=== PATIENT | female | born 2000 | race Caucasian/White ===

== ENCOUNTER → 2023-09-11 | Outpatient (CLI) | payer OTHER, SELFPAY ==
[2023-09-11 12:48] LABS: hCG Titer Quant., Serum > 200000 mIU/mL (1-3)
== END | disposition home or self-care (01) ==
LOC: PAVLAB 09:50
PROVIDERS: PCP Family Medicine; Referring Provider Obstetrics & Gynecology; Visit Provider Obstetrics & Gynecology
DX: O02.1 Missed abortion (principal)
CPT/HCPCS: 36415; 84702; 86850; 86900; 86901

== ENCOUNTER → 2023-09-12 | Outpatient (CLI) | payer OTHER, SELFPAY ==
--- NOTE | 2023-09-12 07:04 | US_ITS ---
INDICATION: well being EXAMINATION: Ultrasound US OB Transvaginal TECHNIQUE: Transabdominal and transvaginal (for optimal evaluation of the adnexa) pelvic ultrasound was performed. Grayscale, spectral waveform, and color flow Doppler evaluation of the adnexa. COMPARISON: No relevant prior comparison study available LMP: [07/06/2023 Beta-hCG: Unknown FINDINGS: UTERUS: The uterus measures 11 x 10 x 7.2 cm. RIGHT OVARY: The right ovary measures 3.8 x 2.6 x 2.7 cm. Normal. LEFT OVARY: The left ovary measures 3.6 x 1.9 x 2.5 cm. Normal. FREE FLUID: None. INTRAUTERINE GESTATIONAL SAC(s) (size/shape): Single. Small fluid collection/cyst measuring about 5 mm seen anterior to the gestational sac. YOLK SAC: Identified measuring 4 mm. POLE: Identified CRL 2.1 cm. ESTIMATED GESTATION AGE: 8 weeks and 4 days. HEART MOTION: 164 bpm. PLACENTA: Not visualized due to age. SUBCHORIONIC HEMORRHAGE: None. AMNIOTIC FLUID: Qualitatively normal. US/Transvaginal w/Preg US IMPRESSION: Single live intrauterine . Estimated gestational age is 8 weeks and 4 days. The EKATERINA is 04/19/2024. Electronically Signed: Benitez Cano MD at 8:39 EST ,
--- OUTSIDE RECORDS SUMMARY | 2023-09-12 07:06 | XMS RPT_ITS | CCD ---
Author Name Unknown Address [facility] [place] [address] Organization [facility] Care Team Providers Care Glass Scullion Name Role Phone Mikaela Rick Unavailable Unavailable CHANTALE TORRES Attending Unavailable MIKAELA RICK Primary Care Unavailable Mikaela Rick MD Primary Care Provider [phone] SIMRAN GARCIA Attending Unavailable MIKAELA RICK Primary Care Unavailable SIMRAN GARCIA Referring Unavailable MIKAELA RICK Primary Care Unavailable Medications Current Medications Medication Drug Class(es) Dates Sig (Normalized) Sig (Original) sulfamethoxazole 800 mg / trimethoprim 160 mg oral tablet (1 source) Dihydrofolate Reductase Inhibitor Antibacterial, Sulfonamide Antimicrobial Start: 11-24-2022 End: 07-14-2023 sulfamethoxazole- trimethoprim (Bactrim DS) 800-160 mg tablet Indications: Acute cystitis without hematuria Take 1 tablet twice daily until gone 10 tablet 0 11/24/2022 07/14/2023 Discontinued (Med List Cleanup) Completed/Discontinued Medications Medication Drug Class(es) Dates Sig (Normalized) Sig (Original) No Reported Medications (1 source) No Reported Medi cations Refills: 0 Active Problems Active Problems Problem Classification Problem Date Documented Da te Episodic/Chronic Cardiac dysrhythmias (5 sources) Tachycardia; Translations: [Tachycardia, unspecified] Onset: 07-14-2023 07-14-2023 Episodic Unclassified (2 sources) New Patient; Translations: [New Patient] Onset: 10-27-2022 Unclassified (2 sources) Annual Exam; Translations: [Annual Exam] Onset: 10-27-2022 Past or Other Problems Problem Classification Problem Date Documented Da te Episodic/Chronic NEGATED: Highlighted row has been ruled out!Residual codes; unclassified (2 sources) Disease Episodic Results Test Name Value Interpretation Reference Range Facil ity Vital Signs Date Time Vital Sign Value Performing Clinician Facility 07-14-2023 07:51-0500 Body temperature 97.9 [degF] Simran Garcia DO Work Phone: [facility] 07-14-2023 07:51-0500 Body weight 51.03 kg Simran Zarcoko DO Work Phone: [facility] 07-14-2023 07:51-0500 Diastolic blood pressure 62 mm[Hg] Simran Zarcoko DO Work Phone: [facility] 07-14-2023 07:51-0500 Heart rate 88 /min Simran Garcia DO Work Phone: [facility] 07-14-2023 07:51-0500 Respiratory rate 16 /min Simran Zarcoko DO Work Phone: [facility] 07-14-2023 07:51-0500 SaO2% (BldA) [Mass fraction] 98 % Simran Garcia DO Work Phone: [facility] 07-14-2023 07:51-0500 Systolic blood pressure 98 mm[Hg] Simran Garcia DO Work Phone: [facility] Encounters Encounter Date Encounter Type Care Provider Facility Start: 07-14-2023 End: 07-15-2023 ambulatory [facility] Start: 07-14-2023 End: 07-15-2023 Encounter for general adult medical examination without abnormal findings [facility] Start: 07-14-2023 End: 07-14-2023 Office outpatient visit 15 minutes Simranlibia Garcia DO Work Phone: [facility] Procedures Date Procedure Procedure Detail Performing Clinician Start: 07-14-2023 CBC panel - Blood by Automated count MIKAELA RICK Start: 07-14-2023 Comprehensive metabo lic 2000 panel - Serum or Plasma MIKAELA RICK Start: 07-14-2023 Magnesium [Mass/volu me] in Serum or Plasma MIKAELA RICK Start: 07-14-2023 TSH WITH REFLEX TO F REE T4 IF ABNORMAL MIKAELA RICK Start: 07-14-2023 ECG 12-LEAD SIMRAN GARCIA Start: 07-14-2023 Ecg routine ecg w/le ast 12 lds w/i&r Simran Garcia DO Work Phone: Plan of Treatment Date Care Activity Detail Author Start: 2051 Zoster Vaccines (1 o f 2) Zoster Vaccines (1 of 2) [facility] Start: 07-19-2023 End: 07-19-2023 Patient encounter procedure 07/19/2023 2:00 PM EST Appointment [facility] [address] [place] [address] [facility] Start: 07-14-2023 End: 07-14-2024 CBC panel - Blood by Automated count CBC Lab Routine Routine health maintenance Expected: 07/14/2023 (Approximate), Expires: 07/14/2024 [facility] Work Phone: Immunizations Immunization Date Immunization Notes Care Provider Desirae ordoñez 04-05-2018 meningococcal oligosaccharide (groups A, C, Y and W-135) diphtheria toxoid conjugate vaccine (MCV4O); Translations: [Menveo Intramuscular Solution Reconstituted] [facility] Work Phone: 02-11-2013 meningococcal polysaccharide (groups A, C, Y and W-135) diphtheria toxoid conjugate vaccine (MCV4P) [facility] Work Phone: 02-11-2013 tetanus toxoid, redu chacha diphtheria toxoid, and acellular pertussis vaccine, adsorbed [facility] Work Phone: 02-11-2013 varicella virus vaccine [facility] Work Phone: 05-22-2006 diphtheria, tetanus toxoids and pertussis vaccine [facility] Work Phone: 05-22-2006 haemophilus influenz ae type b vaccine, PRP-OMP conjugate [facility] Work Phone: 05-22-2006 measles, mumps and r ubella virus vaccine [facility] Work Phone: 05-22-2006 poliovirus vaccine, inactivated [facility] Work Phone: 10-10-2002 diphtheria, tetanus toxoids and pertussis vaccine [facility] Work Phone: 10-10-2002 haemophilus influenz ae type b vaccine, PRP-OMP conjugate [facility] Work Phone: 10-10-2002 hepatitis B vaccine, pediatric or pediatric/adolescent dosage [facility] Work Phone: 10-10-2002 measles, mumps and r ubella virus vaccine [facility] Work Phone: 10-10-2002 varicella virus vaccine [facility] Work Phone: 07-26-2002 diphtheria, tetanus toxoids and pertussis vaccine [facility] Work Phone: 07-26-2002 pneumococcal polysaccharide vaccine, 23 valent [facility] Work Phone: 07-26-2002 poliovirus vaccine, inactivated [facility] Work Phone: 2001 diphtheria, tetanus toxoids and pertussis vaccine [facility] Work Phone: 2001 haemophilus influenz ae type b vaccine, PRP-OMP conjugate [facility] Work Phone: 2001 hepatitis B vaccine, pediatric or pediatric/adolescent dosage [facility] Work Phone: 2001 pneumococcal polysaccharide vaccine, 23 valent [facility] Work Phone: 2001 poliovirus vaccine, inactivated [facility] Work Phone: 2001 diphtheria, tetanus toxoids and pertussis [facility] Work Phone: 2001 haemophilus influenz ae type b vaccine, PRP-OMP conjugate [facility] Work Phone: 2001 hepatitis B vaccine, pediatric or pediatric/adolescent dosage [facility] Work Phone: 2001 pneumococcal polysaccharide vaccine, 23 valent [facility] Work Phone: 2001 poliovirus vaccine, inactivated [facility] Work Phone: Payers Date Payer Category Payer Unknown [id number] 2021 Unknown [employer] [facility] [place] [id number] 2021-Present [address] [place] [address] [id number] 2021 Unknown [id number] 2001 Unknown [id number] 2001 Unknown [id number] Social History Date Type Detail Facility Start: 07-14-2023 Tobacco smoking status MAIS Never smoked tobacco [facility] Work Phone: Start: 07-14-2023 Tobacco use and exposure Smokeless tobacco non-user [facility] Work Phone: Start: 07-14-2023 Alcohol intake Lifetime non-d yosvany (finding) [facility] Work Phone: Start: 07-14-2023 History of Social function [facility] Work Phone: Start: 07-14-2023 [facility] Work Phone: Start: 2001 Sex Assigned At Not on file [facility] Work Phone: Start: 07-13-2023 Gender identity Identifies as female gender (finding) [facility] Start: 07-04-2023 End: 07-14-2023 Exposure to SARS-CoV-2 (event) Not sure [facility] NEGATED: Highlighted row - - [facility] Work Phone: Functional Status Date Assessment Result Facility NEGATED: Highlighted row Functional performance Functional status health issues are not documented Disease [facility] Work Phone: Mental Status Date Assessment Result Facility NEGATED: Highlighted row Cognitive function [Interpretation] Cognitive status health issues are not documented Disease [facility] Work Phone: History of Present illness Narrative 07-14-2023 Simran Garcia, DO - 07/14/2023 8:00 AM EST Note Date & Type Note Facility 07-14-2023 History of Present illness Narrative Subjective Patient ID: Jesusita Tellez is a 23 y.o. female who presents for Rapid Heart Rate (Intermittent at [id number]/Lightheadedness + diaphoresis /X approx 6 months). HPI Grandmother has baseline higher HR Baseline HR is typically 80-90s Racing causes heart rate to low 100s HR increases for about 5 minutes Tried reducing caffeine and this help Denies anxiety or stress Sleeping well Lasts no longer than 5 minutes Randomly happens,some weeks once and other 2x/day No recent illness Review of Systems See HPI Objective BP 98/62 (BP Location: Right arm, Patient Position: Sitting, BP Cuff Size: Adult) Pulse 88 Temp 36.6 C (97.9 F) Resp 16 Wt 51 kg (112 lb 8 oz) LMP 06/14/2023 (Approximate) SpO2 98% Physical Exam Constitutional: Well developed, well nourished, alert and in no acute distress Eyes: Normal external exam. Neck: Supple, no lymphadenopathy or masses,no thyromegaly. Cardiovascular: Regular rate and rhythm, normal S1 and S2, no murmurs, gallops, or rubs. Radial pulses normal. No peripheral edema. Pulmonary: No respiratory distress, lungs clear to auscultation bilaterally. No wheezes, rhonchi, rales. Skin: Warm, well perfused, normal skin turgor and color. Neurologic: Cranial nerves II-XII grossly intact. Psychiatric: Mood calm and affect normal. Assessment/Plan Io EKG performed-NSR Holter monitor -14 days If heart racing worsens or persists, please proceed to the ED. Labs (non-fasting) ordered documented in this encounter [facility] Work Phone: Evaluation note Note Date & Type Note Facility documented in this encounter [facility] Work Phone: Instructions Note Date & Type Note Facility [facility] Work Phone: Summary Purpose Family History No Family History Records Found Mother Name Dates Details No pertinent family history( V49.89, Z78.9) Status:Active Father Name Dates Details No pertinent family history( V49.89, Z78.9) Status:Active Advance Directives No Advanced Directives Records FoundNo Advanced Directives Records FoundNo Advanced Directives Records FoundNo Advanced Directives Records Found Reason for Referral Specialty Diagnoses / Procedures Referred By Val villa Referred To Contact Cardiology Diagnoses Racing heart beat Procedures Holter or Event Supervisor [employer] Simran Garcia DO [address] [facility] [address] [place] [address] Referral ID Status Reason Start Date Expiration Date V isits Requested Visits Authorized [id number] Pending Review 07/14/2023 07/13/2024 1 1 Specialty Diagnoses / Procedures Referred By Contac t Referred To Contact Diagnoses Racing heart beat Procedures ECG 12 lead (Clinic Performed) Simran Garcia DO [address] [facility] [address] [place] [address] Referral ID Status Reason Start Date Expiration Date V isits Requested Visits Authorized [id number] Pending Review 07/14/2023 07/13/2024 1 1 Additional Source Comments INFORMATION SOURCE (unrecogn ized section and content) DATE CREATED AUTHOR AUTHOR'S ORGANIZ ATION 11/25/2022 [facility] DATE CREATED AUTHOR AUTHOR'S ORGANIZ ATION 07/15/2023 [facility] DATE CREATED AUTHOR AUTHOR'S ORGANIZ ATION 07/19/2023 [facility] Reason for Visit (unrecogniz ed section and content) Specialty Diagnoses / Procedures Referred By Contac t Referred To Contact Diagnoses Racing heart beat Procedures ECG 12 lead (Clinic Performed) Simran Garcia DO [address] [facility] [place] [address] [place] [address] Referral ID Status Reason Start Date Expiration Date V isits Requested Visits Authorized [id number] Pending Review 07/14/2023 07/13/2024 1 1 Care Teams (unrecognized sec tion and content) FOR RECORDS PERTAINING TO PATIENTS WHO ARE OR HAVE BEEN ENROLLED IN A CHEMICAL DEPENDENCY/SUBSTANCEABUSE PROGRAM, SOME INFORMATION MAY BE OMITTED. This clinical summary was aggregated from multiple sources. Caution should be exercised in using it in the provision of clinical care. This summary normalizes information from multiple sources, and as a consequence, information in this document may materially change the coding, format and clinical context of patient data. In addition, data may be omitted in some cases. CLINICAL DECISIONS SHOULD BE BASED ON THE PRIMARY CLINICAL RECORDS. [facility] [employer] [facility]. provides no warranty or guarantee of the accuracy or completeness of information in this document.
== END | disposition home or self-care (01) ==
LOC: US 07:04
PROVIDERS: PCP Family Medicine; Referring Provider Obstetrics & Gynecology; Visit Provider Obstetrics & Gynecology
DX: Z36.89 Encounter for other specified antenatal screening (principal)
CPT/HCPCS: 76817

== ENCOUNTER → 2023-09-19 | Outpatient (CLI) | payer OTHER, SELFPAY ==
--- OUTSIDE RECORDS SUMMARY | 2023-09-19 12:23 | XMS RPT_ITS | CCD ---
Author Name Unknown Address [facility] [address] [place] [address] Organization [facility] Care Team Providers Care Software Systems Engineer Name Role Phone Mikaela Rick Unavailable Unavailable CHANTALE TORRES Attending Unavailable MIKAELA RICK Primary Care Unavailable Mikaela Rick MD Primary Care Provider SIMRAN GARCIA Attending Unavailable MIKEALA RICK Primary Care Unavailable SIMRAN GARCIA Referring [...] 97.9 [degF] Simran Garcia DO Work Phone: [facility] 07-14-2023 07:51-0500 Body weight 51.03 kg Simran Zarcoko DO Work Phone: [facility] 07-14-2023 07:51-0500 Diastolic blood pressure 62 mm[Hg] Simran Zarcoko DO Work Phone: [facility] 07-14-2023 07:51-0500 Heart rate 88 /min Simran Garcia DO Work Phone: [facility] 07-14-2023 07:51-0500 Respiratory rate 16 /min Simran Zarcoko DO Work Phone: [facility] 07-14-2023 07:51-0500 SaO2% (BldA) [Mass fraction] 98 % Simran Garcia DO Work Phone: [facility] 07-14-2023 07:51-0500 Systolic blood pressure 98 mm[Hg] Simran Garcia DO Work Phone: [facility] Encounters Encounter Date Encounter Type Care Provider Facility Start: 07-14-2023 End: 07-15-2023 ambulatory [facility] Start: 07-14-2023 End: 07-15-2023 Encounter for general adult medical examination without abnormal findings [facility] Start: 07-14-2023 End: 07-14-2023 Office outpatient visit 15 minutes Simranlibia Garcia DO Work Phone: [facility] Procedures Date Procedure Procedure Detail Performing [...] f 2) Zoster Vaccines (1 of 2) [facility] Start: 07-19-2023 End: 07-19-2023 Patient encounter procedure 07/19/2023 2:00 PM EST Appointment [facility] [address] [place] [address] [facility] Start: 07-14-2023 End: 07-14-2024 CBC panel - Blood by Automated count CBC Lab Routine Routine health maintenance Expected: 07/14/2023 (Approximate), Expires: 07/14/2024 [facility] Work Phone: Immunizations Immunization Date Immunization Notes Care Provider Desirae ordoñez 04-05-2018 meningococcal oligosaccharide (groups A, C, Y and W-135) diphtheria toxoid conjugate vaccine (MCV4O); Translations: [Menveo Intramuscular Solution Reconstituted] [facility] Work Phone: 02-11-2013 meningococcal polysaccharide (groups A, C, Y and W-135) diphtheria toxoid conjugate vaccine (MCV4P) [facility] Work Phone: 02-11-2013 tetanus toxoid, redu chacha diphtheria toxoid, and acellular pertussis vaccine, adsorbed [facility] Work Phone: 02-11-2013 varicella virus vaccine [facility] Work Phone: 05-22-2006 diphtheria, tetanus toxoids and pertussis vaccine [facility] Work Phone: 05-22-2006 haemophilus influenz ae type b vaccine, PRP-OMP conjugate [facility] Work Phone: 05-22-2006 measles, mumps and r ubella virus vaccine [facility] Work Phone: 05-22-2006 poliovirus vaccine, inactivated [facility] Work Phone: 10-10-2002 diphtheria, tetanus toxoids and pertussis vaccine [facility] Work Phone: 10-10-2002 haemophilus influenz ae type b vaccine, PRP-OMP conjugate [facility] Work Phone: 10-10-2002 hepatitis B vaccine, pediatric or pediatric/adolescent dosage [facility] Work Phone: 10-10-2002 measles, mumps and r ubella virus vaccine [facility] Work Phone: 10-10-2002 varicella virus vaccine [facility] Work Phone: 07-26-2002 diphtheria, tetanus toxoids and pertussis vaccine [facility] Work Phone: 07-26-2002 pneumococcal polysaccharide vaccine, 23 valent [facility] Work Phone: 07-26-2002 poliovirus vaccine, inactivated [facility] Work Phone: 2001 diphtheria, tetanus toxoids and pertussis vaccine [facility] Work Phone: 2001 haemophilus influenz ae type b vaccine, PRP-OMP conjugate [facility] Work Phone: 2001 hepatitis B vaccine, pediatric or pediatric/adolescent dosage [facility] Work Phone: 2001 pneumococcal polysaccharide vaccine, 23 valent [facility] Work Phone: 2001 poliovirus vaccine, inactivated [facility] Work Phone: 2001 diphtheria, tetanus toxoids and [facility]ussis [facility] Work Phone: 2001 haemophilus influenz ae type b vaccine, PRP-OMP conjugate [facility] Work Phone: 2001 hepatitis B vaccine, pediatric or pediatric/adolescent dosage [facility] Work Phone: 2001 pneumococcal polysaccharide vaccine, 23 valent [facility] Work Phone: 2001 poliovirus vaccine, inactivated [facility] Work Phone: Payers Date Payer Category Payer Unknown [id number] 2021 Unknown [employer] [facility] [id number] 2021-Present [address] [place] [address] [id number] 2021 Unknown [id number] 2001 Unknown [id number] 2001 Unknown [id number] Social History Date Type Detail Facility Start: 07-14-2023 Tobacco smoking status AKIS Never smoked tobacco [facility] Work Phone: Start: 07-14-2023 Tobacco use and exposure Smokeless tobacco non-user [facility] Work Phone: Start: 07-14-2023 Alcohol intake Lifetime non-d yosvany (finding) [facility] Work Phone: Start: 07-14-2023 History of Social function [facility] Work Phone: Start: 07-14-2023 Tobacco use panel [facility] Work Phone: Start: 2001 Sex Assigned At Not on file [facility] Work Phone: Start: 07-13-2023 Gender identity Identifies as female gender (finding) [facility] Start: 07-04-2023 End: 07-14-2023 Exposure to SARS-CoV-2 (event) Not sure [facility] NEGATED: Highlighted row - - [facility] Work Phone: Functional Status Date Assessment Result Facility NEGATED: Highlighted row Functional performance Functional status health issues are not documented Disease [facility] Work Phone: Mental Status Date Assessment Result Facility NEGATED: Highlighted row Cognitive function [Interpretation] Cognitive status health issues are not documented [facility] Work Phone: History of Present illness Narrative 07-14-2023 Simran Garcia, DO - 07/14/2023 8:00 AM EST Note Date & Type Note Facility 07-14-2023 History of Present illness Narrative Subjective Patient ID: Jesusita Tellez is a 23 y.o. female who presents for Rapid Heart Rate (Intermittent at [id number]/Lightheadedness + diaphoresis /X approx 6 months). HPI [...] Labs (non-fasting) ordered documented in this encounter [facility] Work Phone: Evaluation note Note Date & Type Note Facility documented in this encounter [facility] Work Phone: Instructions Note Date & Type Note Facility 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 Simran Garcia DO [address] [facility], [facility] [address] [place] [address] Referral ID Status Reason Start Date Expiration Date V isits Requested Visits Authorized [id number] Pending Review 07/14/2023 07/13/2024 1 1 Specialty Diagnoses / Procedures Referred By Contac t Referred To Contact Diagnoses Racing heart beat Procedures ECG 12 lead (Clinic Performed) Simran Garcia DO [address] [facility], [facility] [address] [place] [address] Referral ID Status Reason Start Date Expiration Date V isits Requested Visits Authorized [id number] Pending Review 07/14/2023 07/13/2024 1 1 Additional Source Comments INFORMATION SOURCE (unrecogn ized section and content) DATE CREATED AUTHOR AUTHOR'S ORGANIZ ATION 11/25/2022 [facility] DATE CREATED AUTHOR AUTHOR'S ORGANIZ ATION 07/15/2023 [facility] DATE CREATED AUTHOR AUTHOR'S ORGANIZ ATION 07/19/2023 [facility] Reason for Visit (unrecogniz ed section and content) Specialty Diagnoses / Procedures Referred By Contac t Referred To Contact Diagnoses Racing heart beat Procedures ECG 12 lead (Clinic Performed) Simran Garcia DO [address] [facility] [place] [address] [place] [address] Referral ID Status Reason Start Date Expiration Date V isits Requested Visits Authorized [id number] Pending Review 07/14/2023 07/13/2024 1 1 Care [...] BE BASED ON THE PRIMARY CLINICAL RECORDS. [facility]. provides no warranty or guarantee of the accuracy or completeness of information in this document.
[2023-09-21 02:07] LABS: Chlamydia By Nucleic Acid AMP Negative (Negative); Gonococcus By Nucleic Acid AMP Negative (Negative)
== END | disposition home or self-care (01) ==
LOC: LABSPEC 11:41
PROVIDERS: PCP Family Medicine; Referring Provider Obstetrics & Gynecology; Visit Provider Obstetrics & Gynecology
DX: Z34.90 Encounter for supervision of normal pregnancy, unspecified, unspecified trimester (principal); Z3A.00 Weeks of gestation of pregnancy not specified
CPT/HCPCS: 87086; 87491; 87591

== ENCOUNTER → 2023-10-04 | Outpatient (CLI) | payer OTHER, SELFPAY ==
[2023-10-04 15:26] LABS: Absolute Lymphocyte Count 2.92 X10^3/uL (0.83-4.51); Absolute Neutrophil Count 6.6 X10^3/uL (2.0-7.7); Basophil# 0.03 X10^3/uL; Basophil% 0.3 % (0-1); Eosinophil# 0.16 X10^3/uL; Eosinophils% 1.5 % (0-5); Hematocrit 37.4 % (37-47); Hemoglobin 12.3 g/dL (12.0-15.0); Lymphocyte # 2.92 X10^3/ul (0.83-4.51); Lymphocyte % 27.6 % (19-41); Mean Corp Hgb Conc 32.9 g/dL (32-36); Mean Corpuscular Volume 82.2 fL (81-99); Mean Platelet Vol. 12.4 fl (6.2-12.0); Monocyte# 0.88 X10^3/uL; Monocyte% 8.3 % (0-10); NRBC Flagged by Analyzer 0 % (0-5); Neutrophil # 6.56 X10^3/uL (2.7-7.7); Neutrophil % 61.9 % (47-70); Platelet Count 233 K/mm3 (150-450); RBC Distribution Width CV 12.9 % (11.6-14.6); Red Blood Count 4.55 M/mm3 (4.2-5.4); White Blood Count 10.6 K/mm3 (4.4-11.0)
[2023-10-04 18:28] LABS: HIV - WCH Non-Reactive (Nonreactive); Hepatitis B Surface Antigen Non-Reactive (Nonreactive); Hepatitis C Antibody Non-Reactive (Nonreactive); Rubella IgG Reactive (Nonreactive); Syphilis Antibodies Non-reactive
== END | disposition home or self-care (01) ==
LOC: PAVLAB 15:01
PROVIDERS: PCP Family Medicine; Referring Provider Obstetrics & Gynecology; Visit Provider Obstetrics & Gynecology
DX: Z34.90 Encounter for supervision of normal pregnancy, unspecified, unspecified trimester (principal); Z3A.00 Weeks of gestation of pregnancy not specified
CPT/HCPCS: 36415; 85025; 86703; 86762; 86780; 86803; 86850; 86900; 86901; 87340

== ENCOUNTER → 2024-01-09 | Outpatient (CLI) | payer OTHER, SELFPAY ==
[2024-01-09 10:59] LABS: Absolute Lymphocyte Count 2.39 X10^3/uL (0.83-4.51); Absolute Neutrophil Count 8.3 X10^3/uL (2.0-7.7); Basophil# 0.03 X10^3/uL; Basophil% 0.3 % (0-1); Eosinophil# 0.24 X10^3/uL; Hematocrit 38.4 % (37-47); Hemoglobin 13.1 g/dL (12.0-15.0); Lymphocyte # 2.39 X10^3/ul (0.83-4.51); Lymphocyte % 20.3 % (19-41); Mean Corp Hgb Conc 34.1 g/dL (32-36); Mean Corpuscular Hgb 29.4 pg (27.0-32.0); Mean Corpuscular Volume 86.3 fL (81-99); Mean Platelet Vol. 11.3 fl (6.2-12.0); Monocyte# 0.68 X10^3/uL; Monocyte% 5.8 % (0-10); NRBC Flagged by Analyzer 0 % (0-5); Neutrophil # 8.27 X10^3/uL (2.7-7.7); Neutrophil % 70.3 % (47-70); Platelet Count 200 K/mm3 (150-450); RBC Distribution Width CV 13.2 % (11.6-14.6); RBC Distribution Width SD 40.6 fl (35.1-43.9); Red Blood Count 4.45 M/mm3 (4.2-5.4); White Blood Count 11.8 K/mm3 (4.4-11.0)
[2024-01-09 11:19] LABS: Glucose Challenge Gest 1H 50g 96 mg/dL (70-140)
[2024-01-09 12:03] LABS: HIV - WCH Non-Reactive (Nonreactive); Syphilis Antibodies Non-reactive
== END | disposition home or self-care (01) ==
LOC: PAVLAB 10:37
PROVIDERS: PCP Family Medicine; Referring Provider Registered Nurse; Visit Provider Registered Nurse
DX: O09.91 Supervision of high risk pregnancy, unspecified, first trimester (principal); Z13.1 Encounter for screening for diabetes mellitus; Z3A.00 Weeks of gestation of pregnancy not specified
CPT/HCPCS: 36415; 82950; 85025; 86703; 86780

== ENCOUNTER → 2024-03-21 | Outpatient (CLI) | payer OTHER, SELFPAY | END | disposition home or self-care (01) | LOC: LABSPEC 12:59 | PROVIDERS: PCP Family Medicine; Visit Provider Obstetrics & Gynecology | DX: O09.91 Supervision of high risk pregnancy, unspecified, first trimester (principal); Z3A.00 Weeks of gestation of pregnancy not specified | CPT/HCPCS: 87081 ==

== ENCOUNTER 2024-03-29 10:46 | Inpatient (IN) | payer OTHER, SELFPAY ==
[2024-03-29] VITALS (12 sets, daily range): BP systolic 101–115; BP diastolic 58–74; PULSE 81–114; RESP 16; TEMP 36.3–36.9; O2SAT 83–98; BMI 25.4
--- NOTE | 2024-03-29 10:49 | HP.PCM.OB_ITS ---
HPI - General General Date of Admission: 03/29/24 HPI Narrative NEGIN JOHNSON, is a 24 F who presents at 38.0 arrived for IOL following 7.5% growth scan today. denies vb/ctx/lof. good movement. gbs negative. Maternal Data Information EKATERINA Calculator Estimated Delivery Date Method Current WG Current Estimate 04/12/24 Ultrasound #1 38w 0d Other Estimates 04/21/24 LMP (Certain) 36w 5d PFSH PFSH Medical History Seasonal allergies Home Medications ?Medication ?Instructions ?Recorded ?Last Taken ?Type multivitamin no.47-iron fum 27 cap PO 09/15/23 Unknown History mg-folate no.1 1 mg-dha 300 mg capsule (PNV-DHA) promethazine 12.5 mg tablet 12.5 mg PO Q6H PRN nausea and 09/18/23 Unknown Rx vomiting #60 tabs Allergy/AdvReac Type Severity Reaction Status Date / Time No Known Allergies Allergy Verified 03/28/24 08:39 Family History Grandfather Cancer Sister Family history of recurrent miscarriage Surgical History [place] teeth extracted Social History adopted: No household members: spouse current occupational status: employed current occupation: [employer] current occupational exposures/hazards: No pets and animals: No history of recent travel: No sexually active: Yes Smoking Status: Never smoker alcohol intake: never substance use type: does not use well-balanced diet: daily or most days caffeine: No eating out: rarely or never during the past year weight has: remained stable what type of physical activity do you participate in: none cheo/faith: Gnosticism seatbelt use: always do you feel safe at home: Yes additional social history: Spouse - Luis works in [employer] History 1 Elective abortions Hx Para 0 Spontaneous abortions Hx # Term Pregnancies Ectopic pregnancies Hx # Pregnancies Multiple births # of living children Visit Details Expected Delivery Route/Plan Labor Preferences- CB/BF classes: encouraged labor support person: Luis labor intervention preferences: pain management options preferred: epidural if requested cut cord/dad catch: cord yes : yes PP control planned: discussed discussed possible routes of delivery and associated risks: [] special requests: [] Plans Covid status: [] Flu vaccine: [] Tdap vaccine: declines Rhogam: NA LARC form signed: yes movement and labor precautions reviewed. Problem list reviewed and updated with the most current plan of care details and appropriate orders placed. Relevant counseling for the gestational age provided. Continue routine care and follow up unless otherwise noted in visit notes/problem list details OB Flowsheet Initial Weight: Not Recorded Date -?-?-?-?-?-?-?-?-?-?-?-?- EGA Weight BP Urine Prot -?-?-?-?-?-?-?-?-?-?-?-?- Glucose FHR FuHt Pres Dilation -?-?-?-?-?-?-?-?-?-?-?-?- Effaced St Visit Note 09/19/23 -?-?-?-?-?-?-?-?-?-?-?-?- 10w 4d 104 lb 8 oz 124/78 -?-?-?-?-?-?-?-?-?-?-?-?- 189 -?-?-?-?-?-?-?-?-?-?-?-?- JV- large subcho rionic hem vs vanishing twin measuring 4 cm present CRL measuring 10 weeks 4 days. Declines NIPT. rto in 1-2 weeks for close follow up. pt still bleeding. 10/04/23 -?--?-?-?-?-?-?-?-?-?-?-?- 12w 5d 108 lb 117/75 Negative -?-?-?-?-?-?-?-?-?-?-?-?- Negative 160 -?-?-?-?-?-?-?-?-?-?-?-?- JV- vanishing tw in vs subchorionic hem is resolving. labs ordered. declines nipt. 11/02/23 -?-?-?-?-?-?-?-?-?-?-?-?- 16w 6d 116 lb 114/81 Negative -?-?-?-?-?-?-?-?-?-?-?-?- Negative 150 -?-?-?-?-?-?-?-?-?-?-?-?- SM- no vb crampi ng declined afp screen 11/28/23 -?-?-?-?-?-?-?-?-?-?-?-?- 20w 4d 121 lb 6 oz 116/76 Nega tive -?-?-?-?-?-?-?-?-?-?-?-?- Negative 145 20 -?-?-?-?-?-?-?-?-?-?-?-?- KW- no vb/crampi ng. no fm yet. normal anatomy. discussed 28 week labs. CBE classes encouraged 12/25/23 -?-?-?-?-?-?-?-?-?-?-?-?- 24w 3d 126 lb 8 oz 106/75 Nega tive -?-?-?-?-?-?-?-?-?-?-?-?- Negative 153 24 -?--?-?-?-?-?-?-?-?-?-?-?- LC-no vb/ctx/lof . +FM. 28 week labs ordered. 01/22/24 -?-?-?-?-?-?-?-?-?-?-?-?- 28w 3d 135 lb 2 oz 109/63 Nega tive -?-?-?-?-?-?-?-?-?-?-?--?- Negative 144 27 -?-?-?-?-?-?-?-?-?-?-?-?- MH-NO VB, LOF. G ood FM. Larc done. Declines tdap. Nl 28 wk labs 02/08/24 -?-?-?-?-?-?-?-?-?-?-?-?- 30w 6d 132 lb 4 oz 97/63 Nega tive -?-?-?-?-?-?-?-?-?-?-?-?- Negative 140 30 -?-?-?-?-?-?-?-?-?-?-?-?- KW- no vb/lof/ct x. good fm. no concerns 02/22/24 -?-?-?-?-?-?-?-?-?-?-?-?- 32w 6d 133 lb 8 oz 117/74 Nega tive -?-?-?-?-?-?-?-?-?-?-?-?- Negative 146 32 -?-?-?-?-?-?-?-?-?-?-?-?- JV- no lof, vagi nal bleeding, or dec fm. Questions answered. 03/06/24 -?-?-?-?-?-?-?-?-?-?-?-?- 34w 5d 138 lb 4 oz 119/84 Nega tive -?-?-?-?-?-?--?-?-?-?-?-?- Negative 145 34 -?-?-?-?-?-?-?-?-?-?-?-?- SM- no vb lof go od fm no regular ctx 03/21/24 -?-?-?-?-?-?-?-?-?-?-?-?- 36w 6d 139 lb 118/74 Negative -?-?-?-?-?-?-?-?-?-?-?-?- Negative 137 35.5 -?-?-?-?-?-?-?-?-?-?-?-?- JV- no lof, vagi nal bleeding, or dec fm. gbs collected. declines pelvic exam. 03/28/24 -?-?-?-?-?-?-?-?-?-?-?-?- 37w 6d 139 lb 114/74 Negative -?-?-?-?-?-?-?-?-?-?-?-?- Negative 142 36 -?-?-?--?-?-?-?-?-?-?-?-?- JV- no lof, vagi nal bleeding, or dec fm. patient declines pelvic exam. GBS is negative. ROS Cardiovascular Cardiovascular: Denies abdominal pain, chest pain, diaphoresis or dyspnea Respiratory/Chest Respiratory/Chest: Denies change in mental status, chest congestion, chest tightness, cough, shortness of breath at rest, shortness of breath with exertion, breast mass, breast pain, breast skin changes, breast swelling, change in breast shape or nipple discharge Genitourinary Genitourinary: Reports change in urinary stream Musculoskeletal Musculoskeletal: Reports none Integumentary Integumentary: Reports none Neurologic Neurologic: Reports none Psychiatric Psychiatric: Reports none Endocrine Endocrinology: Reports none Hematologic/Lymphatic Hematologic/Lymphatic: Reports none Allergic/Immunologic Allergic/Immunologic: Reports none Physical Exam Const alert, oriented x3 and no apparent distress General Appearance: cooperative, comfortable and well kempt Orientation / Consciousness: awake and oriented to person Exam Limitations: no limitations HEENT normocephalic Neck full ROM Chest inspection of chest normal Resp normal respiratory effort, normal air movement and no retractions Effort and Inspection: able to speak in complete sentences and symmetric chest movement Cardio regular rate Peripheral Pulses: pulses 2+ throughout GI normal to inspection, nondistended, normoactive bowel sounds Inspection: gravid no CVA tenderness and appearance of the vagina normal External Female Exam: normal appearance of the urethra; Negative for external lesion OB / External & Speculum: external exam normal Manual OB Exam: estimated gestational size appropriate and presentation cephalic Uterus Palpation: Negative for uterus tender Extremity normal to inspection Skin no rashes or lesions noted Neuro deep tendon reflexes 2+ bilaterally and gait normal Motor Exam: strength 5/5 throughout and clonus absent Psych Activity / Motor Behavior: appropriate eye contact Speech: normal speech Labs Labs Labs: Blood Type B POSITIVE Antibody Screen NEGATIVE Hct 38.4 % (37-47) Hgb 13.1 g/dL (12.0-15.0) Obstetrics Ultrasound Syphilis Total Ab Non-reactive Rubella IgG Antibody Reactive (Nonreactive) Hep Bs Antigen Non-Reactive (Nonreactive) Hepatitis C Antibody Non-Reactive (Nonreactive) Chlamydia DNA (EUGENE) Negative (Negative) N.gonorrhoeae DNA (EUGENE) Negative (Negative) HIV 1&2 Antibody Non-Reactive (Nonreactive) Glucose 1 Hr 50 gm 96 mg/dL (70-140) Assessment & Plan (1) IUGR (intrauterine growth restriction): COMMENT: growth at 7.5% on 03/29. (2) Encounter for induction of labor: COMMENT: 1.5/-2 plan for zaragoza/pitocin induction for IUGR less than 10% at 38 weeks. (3) SVT (supraventricular tachycardia): COMMENT: resolved. h/o normal ekg in the past (4) Supervision of high risk in first trimester: COMMENT: PRR , EKATERINA 04/21/24, surprise Luis (5) : QUALIFIERS: Weeks of gestation: 37 weeks Qualified Code(s): Z3A.37 - 37 weeks gestation of COMMENT: gbs neg. declined ntd genetic & carrier testing, nl anatomy, nl 1 HR GCT (6) Twin preg w/ loss/retention one fetus, antepartum complication: COMMENT: vs subchorionic hematoma:resolved PLAN: Plan Patient presents IOL, plan management for with zaragoza/pitocin/AROM. Pain management: plans epidural. GBS negative. Management of any complications: IUGR I have reviewed the [facility] and made any clinically relevant updates. Dr. Hubbard updated on admission, poc and exam and agrees with co-management for IUGR recommended pit/zaragoza for induction agent.
[2024-03-29] MEDS: Lactated Ringers 1,000 ML 50 ML IV (20:23)
[2024-03-29 20:39] LABS: Absolute Lymphocyte Count 1.82 X10^3/uL (0.83-4.51); Absolute Neutrophil Count 6.2 X10^3/uL (2.0-7.7); Basophil# 0.03 X10^3/uL; Basophil% 0.3 % (0-1); Eosinophil# 0.15 X10^3/uL; Eosinophils% 1.6 % (0-5); Hematocrit 40.8 % (37-47); Lymphocyte # 1.82 X10^3/ul (0.83-4.51); Lymphocyte % 19.7 % (19-41); Mean Corp Hgb Conc 34.3 g/dL (32-36); Mean Corpuscular Hgb 28.9 pg (27.0-32.0); Mean Corpuscular Volume 84.3 fL (81-99); Mean Platelet Vol. 12.3 fl (6.2-12.0); Monocyte# 0.97 X10^3/uL; Monocyte% 10.5 % (0-10); NRBC Flagged by Analyzer 0 % (0-5); Neutrophil # 6.19 X10^3/uL (2.7-7.7); Neutrophil % 66.8 % (47-70); Platelet Count 175 K/mm3 (150-450); RBC Distribution Width CV 12.4 % (11.6-14.6); RBC Distribution Width SD 38.1 fl (35.1-43.9); Red Blood Count 4.84 M/mm3 (4.2-5.4); White Blood Count 9.3 K/mm3 (4.4-11.0)
[2024-03-29] MEDS: 0.9% Normal Saline Single 100 ML IV.SOLN. INTRA-UTER (21:00)
[2024-03-29 21:14] LABS: Syphilis Antibodies Non-reactive
[2024-03-29] MEDS: Oxytocin 15 Units/NS 250ml 15 UNITS/250 ML IV.SOLN 2 UNITS IV (22:13)
[2024-03-30] VITALS (72 sets, daily range): BP systolic 89–138; BP diastolic 54–85; PULSE 65–127; RESP 16–17; TEMP 36.3–37.3; O2SAT 91–100
[2024-03-30] MEDS: Lactated Ringers 1,000 ML 50 ML IV (02:47)
[2024-03-30] MEDS: Lactated Ringers 1,000 ML 999 ML IV (05:31)
[2024-03-30] MEDS: fentaNYL-bupivacaine (epidural) 100 ML BAG EPIDURAL (08:17)
[2024-03-30] MEDS: LACTATED RINGERS 500 ML 999 ML IV (08:24)
[2024-03-30] MEDS: Ondansetron 4 MG/2 ML Vial IV (12:03)
--- NOTE | 2024-03-30 13:05 | OP.PCM_ITS ---
Assessment & Plan (1) (spontaneous vaginal delivery): (2) Encounter for induction of labor: COMMENT: 1.5/-2 plan for zaragoza/pitocin induction for IUGR less than 10% at 38 weeks. (3) IUGR (intrauterine growth restriction): COMMENT: growth at 7.5% on 03/29. Maternal Data Information EKATERINA Calculator Estimated Delivery Date Method Current WG Current Estimate 04/12/24 Ultrasound #1 38w 1d Other Estimates 04/21/24 LMP (Certain) 36w 6d Final EKATERINA: 04/12/24 Final EKATERINA Source: US >20 weeks Vaginal Delivery Maternal Presentation Maternal Presentation: Medically Indicated Induction Maternal Presentation: pt arrived for IOL for IUGR 7.5%. pitocin was started as pt was borderline favorable with inability to obtain zaragoza placement due to balloon coming right through. pt SROM around 5am and progressed to painful contractions with epidural placement. progressed quickly to fully dilated on minimal pitocin. Type of Induction: Pitocin Operative Information Date of Procedure: 03/30/24 Pre-Operative Diagnosis: see problem list Surgery / Procedure Performed: Spontaneous Vaginal Delivery Type of Anesthesia: Epidural Drain: Zaragoza to straight drain Estimated Blood Loss: 200 Time of Delivery: 12:34 Findings Description of Procedure: Patient began pushing and delivered the head in the MANUELA presentation. The head was delivered atraumatically. The anterior and posterior shoulders delivered without complication followed by the rest of the infant and the infant was placed on the maternal abdomen. Delayed cord clamping was employed for approximately 60 seconds. Cord was clamped and cut and gentle traction was applied to the cord and the placenta delivered spontaneously immediately following it was noted to be intact with three-vessel cord. The perineum and vagina were inspected and noted to have 1st degree with right labial tear, repaired with 3-0 vicryl in usual fashion. EBL was 200cc. Patient and tolerated delivery well. Presentation: Vertex Amniotic Membrane Rupture Type: Spontaneous Amniotic Fluid Description: Clear Placental Delivery Description: Spontaneous Placenta Disposition: [facility] Cord Vessel Description: 3 Vessels Cord Entanglement: None A Gender: Male (1 minute): 8 (5 minute): 9 Delayed Cord Clamping: Yes Post Vaginal Delivery Medications Given After Delivery: IV Pitocin Episiotomy Description: None Laceration: 1st degree Procedures Urinary/Genital [id number]: [id number] Vaginal Delivery [facility]
--- NOTE | 2024-03-30 13:11 | DCINST_ITS ---
Discharge Instructions Diet Discharge Diet: No restrictions Activity Discharge Activity: May Not Drive and May Shower May resume sexual activity in: 6 weeks Weight Bearing Status: Full weight bearing Dressing / Incision Call your doctor if your incision/area has: Sudden Increased Bleeding, Increased Pain/ Swelling and Foul Smelling Discharge Call your doctor if you observe: Fever of 101 or Higher, Numbness or Tingling, Change in Color, Inability to urinate, Inability to have a bowel movement, Using more than 1 pad per hour, Shortness of breath, Dizziness, Fainting spells, Chest pain, Calf discomfort and Uncontrolled pain Follow Up Care Please Follow Up With: Diamante Ellsworth CNM When: 6 weeks , please call office to make an appointment. Congratulations on the of your baby boy!!! Test Results: Test results from this visit will be discussed in further detail at your follow- up appointment, if applicable. Discharge Plan Admission Admit Date/Time: 03/29/24 10:46 Attending Provider: Diamante Ellsworth Primary Care Provider: Tung Godinez Discharge Orders/Prescriptions Prescriptions: No Action PNV-DHA 27 mg iron-1 mg -300 mg capsule 1 cap PO DAILY magnesium 200 mg tablet 200 mg PO DAILY promethazine 12.5 mg tablet 12.5 mg PO Q6H PRN (Reason: nausea and vomiting) Qty: 60 2RF Referrals / Follow Up: Tung Godinez MD [Primary Care Provider] -
[2024-03-30] MEDS: Oxytocin 15 Units/NS 250ml 15 UNITS/250 ML IV.SOLN 83 UNITS IV (13:20)
[2024-03-30] MEDS: Acetaminophen 500 MG Tablet 1000 MG PO ×2 (13:41→21:13)
[2024-03-30] MEDS: Benzocaine/Lanolin/Aloe Vera 1 SPRAY EACH TOPICAL (17:54)
[2024-03-30] MEDS: Naproxen 500 MG Tablet PO (17:54)
[2024-03-31 00:16] VITALS: BP 110/81; PULSE 88; RESP 16; TEMP 36.6; O2SAT 98
[2024-03-31] MEDS: Naproxen 500 MG Tablet PO ×2 (02:41→13:17)
[2024-03-31 04:00] VITALS: BP 98/68; PULSE 88; RESP 14; TEMP 36.4; O2SAT 98
[2024-03-31 08:00] VITALS: BP 106/69; PULSE 82; RESP 17; TEMP 36.8
[2024-03-31] MEDS: Acetaminophen 500 MG Tablet 1000 MG PO ×2 (08:13→15:12)
--- NOTE | 2024-03-31 09:50 | PCM.PN.OB ---
Subjective Subjective Patient doing well without complaints. Tolerating PO. Ambulating and voiding without difficulty. Feeding well. Denies chest pain, shortness of breath, calf pain/swelling, fevers, chills, lightheadedness. Objective Data Objective Data Vital Signs: Vital Signs Temp Pulse Resp BP Pulse Ox O2 Del Method 98.2 F 82 17 106/69 98 Room Air 03/31/24 08:00 03/31/24 08:00 03/31/24 08:00 03/31/24 08:00 03/31/24 04:00 03/31/24 08:00 Oxygen Delivery Method Room Air Weight: 139 lb 6 oz Body Mass Index (BMI) 25.4 Intake & Output: Intake and Output for Last 24 Hours 03/29/24 03/30/24 03/31/24 23:59 23:59 23:59 Intake Total 2.47 / 4.67 3317.53 / 3317.53 Output Total 2150 / 2150 600 / 600 Balance 2.47 / 4.67 1167.53 / 1167.53 -600 / -600 Lab / Micro Data 03/29/24 20:23 Physical Exam Const alert and oriented x3 Eyes PERRL Neck full ROM Lymph Lymphatic: no lymphadenopathy noted Chest inspection of chest normal and inspection of breasts normal Resp normal respiratory effort and normal air movement Cardio regular rate and regular rhythm GI normal to inspection, nondistended, normoactive bowel sounds Uterus Palpation: uterus fundus firm Extremity normal to inspection, full ROM and no calf tenderness Skin no rashes or lesions noted Psych mental status grossly normal Assessment & Plan (1) (spontaneous vaginal delivery): COMMENT: NEDA IOL-IUGR, Fady PLAN: s/p PPD # 1 1. routine post delivery care 2. breast feeding- support given 3. rh positive 4. rubella immune 5. plans on d/c home today
[2024-03-31 12:15] VITALS: BP 104/84; PULSE 86; RESP 18; TEMP 36.6; O2SAT 99
[2024-03-31 14:00] VITALS: BP 115/83; PULSE 82; RESP 18; TEMP 37; O2SAT 99
== END 2024-03-31 18:10 | disposition home or self-care (01) | DRG 807 ==
PROVIDERS: Admitting Provider Registered Nurse; PCP Family Medicine; Visit Provider Registered Nurse
DX: O36.5930 Maternal care for other known or suspected poor fetal growth, third trimester, not applicable or unspecified (principal); Z37.0 Single live birth; O70.0 First degree perineal laceration during delivery; Z3A.38 38 weeks gestation of pregnancy
CPT/HCPCS: 59025; 59050; 85025; 86780; 86850; 86900; 86901; 99221; J7120; G0378; J2405; J3490

== ENCOUNTER → 2024-03-29 | Outpatient (CLI) | payer OTHER, SELFPAY ==
--- NOTE | 2024-03-29 08:27 | US_ITS ---
STUDY: SECOND AND THIRD TRIMESTER OBSTETRICAL ULTRASOUND - LIMITED REASON FOR EXAM: Female, 24 years old small for gestational age LMP: July 06, 2023. PRIOR ULTRASOUND: Comparison is made with prior study dated September 12, 2023. TECHNIQUE: Transabdominal TECHNICAL QUALITY: Adequate. FINDINGS: There is a single intrauterine fetus. The fetus is in a cephalic presentation. There is demonstrated cardiac activity with a heart rate of 150 bpm. There is a normal amniotic fluid volume. The largest amniotic fluid pocket measures 4.3 cm. The amniotic fluid index (CHARLEY) is 10.9 cm. The placenta is anterior in location and is not low lying. There are Grade 2 placental changes. BIOMETRY: BPD: 9.1 cm: 36 weeks, 6 days HC: 32.6 cm: 36 weeks, 6 days AC: 30.7 cm: 34 weeks, 4 days FL: 6.8 cm: 35 weeks, 0 days Age by LMP: 38 weeks, 0 days. EKATERINA by LMP: April 12, 2024. age by current US: 36 weeks, 2 days. EKATERINA by current US: April 24, 2024. Estimated weight: 2620 grams, +/- 393 grams, 7.6 percentile. US/OB Limited With Biometrics IMPRESSION: Live intrauterine gestation with a mean gestational age of 38 weeks. The measurements obtained today fall within lower limits of normal. Electronically Signed: Marty Newton MD at 9:40 EDT ,
== END | disposition home or self-care (01) ==
PROVIDERS: PCP Family Medicine; Referring Provider Obstetrics & Gynecology; Visit Provider Obstetrics & Gynecology
DX: O36.5930 Maternal care for other known or suspected poor fetal growth, third trimester, not applicable or unspecified (principal)
CPT/HCPCS: 76816

== ENCOUNTER → 2024-05-13 | Outpatient (CLI) | payer OTHER, SELFPAY ==
[2024-05-16 14:51] LABS: HPV Reflexed? NOT INDICATED
== END | disposition home or self-care (01) ==
PROVIDERS: PCP Family Medicine; Referring Provider Nurse Practitioner Women's Health; Visit Provider Nurse Practitioner Women's Health
DX: Z12.4 Encounter for screening for malignant neoplasm of cervix (principal)
CPT/HCPCS: 88175; G0145